=== PATIENT | male | born 1995 | race Two or more races ===

== ENCOUNTER 2019-12-26 17:51 | Emergency (ER) | payer SELFPAY ==
[~2019-12-26] VITALS: Ht 167.6 cm; Wt 57.7 kg
[2019-12-26 18:07] VITALS: BP 120/58
[2019-12-26] MEDS ORDERED: DOCO2CRE TP (18:23)
[2019-12-26] MEDS ORDERED: CEPH-264 PO (18:23)
--- NOTE | 2019-12-26 18:23 | PHYS DOC ---
Past Medical History Past Medical History: No Pertinent History (RADHA TAYLOR) Past Surgical History: No Surgical History (RADHA TAYLOR) Smoking Status: Never Smoker Alcohol Use: None (RADHA TAYLOR) Adult General Chief Complaint Chief Complaint: BLISTER/COLD SORE HPI HPI Patient is a 24 year old M with a cold sore on his lower lip that has now become inflamed and spread with yellow crust. He states he has never had cold sores or fever blisters in the past. PT denies any new sexual partners or contacts. He denies any sores on his genitals. He denies recent illness, fever or stress. (RADHA TAYLOR) Review of Systems Review of Systems Constitutional: Denies fever or chills Eyes: Denies change in visual acuity, redness, or eye pain HENT: Denies nasal congestion or sore throat. Reports lower lip pain Respiratory: Denies cough or shortness of breath Cardiovascular: Denies chest pain GI: Denies abdominal pain, nausea, vomiting, bloody stools or diarrhea Musculoskeletal: Denies back pain or joint pain Integument: Reports lower lip sore Neurologic: Denies headache, focal weakness or sensory changes All other systems were reviewed and found to be within normal limits, except as documented in this note. (RADHA TAYLOR) Allergies Allergies Allergies Coded Allergies Type Severity Reaction Last Updated Verified No Known Drug Allergies 12/26/19 No (OLIVIER BEYER MD) Physical Exam Physical Exam Constitutional: Well developed, well nourished, no acute distress, non-toxic tiesha earance. HENT: Normocephalic, atraumatic, bilateral external ears normal, oropharynx moist, no oral exudates, nose normal. Lower lip lesion that appears to be herpes labialis, however it is inflamed and extends towards middle lip with possible purulent drainage in center, no induration or fluctuance to suggest abscess at this time. Eyes: PERRLA, EOMI, conjunctiva normal, no discharge. Neck: Normal range of motion, no tenderness, supple, no stridor. Cardiovascular:Heart rate regular rhythm, no murmur Lungs & Thorax: Bilateral breath sounds clear to auscultation Abdomen: Bowel sounds normal, soft, no tenderness, no masses, no pulsatile masses. Skin: Warm, dry, no erythema, no rash. See above Back: No tenderness, no CVA tenderness. Extremities: No tenderness, no cyanosis, no clubbing, ROM intact, no edema. Neurologic: Alert and oriented X 3, normal motor function, normal sensory function, no focal deficits noted. Psychologic: Affect normal, judgement normal, mood normal. (RADHA TAYLOR) Current Patient Data Vital Signs Vital Signs Date Time Temp Pulse Resp B/P (MAP) Pulse Ox O2 Delivery O2 Flow Rate FiO2 12/26/19 18:07 98.5 59 18 120/58 (78) 98 Room Air 98.5 (OLIVIER BEYER MD) EKG EKG [] (RADHA TAYLOR) Radiology/Procedures Radiology/Procedures [] (RADHA TAYLOR) Course & Med Decision Making Course & Med Decision Making Discussed probable cold sore and then suspect he picked at it and now has possible secondary bacterial infection. Will cover with both Abreva cream and 3 days of Keflex. Pt to increase oral hygiene and f/u with PCP. Return if symptoms worsen at anytime. (RADHA TAYLOR) Course & Med Decision Making I was not involved in the care of this patient after 1800 on December 26, 2019. (OLIVIER BEYER MD) Dragon Disclaimer Dragon Disclaimer This electronic medical record was generated, in whole or in part, using a voice recognition dictation system. (RADHA TAYLOR) Departure Departure Impression: Primary Impression: Fever blister Additional Impression: Infection of lip Disposition: HOME, SELF-CARE Condition: STABLE Referrals: NO PCP (PCP) Patient Instructions: Cold Sore, [id number], Herpes Labialis Additional Instructions: Suspect that this is a cold sore that has become inflamed and possibly has a secondary bacterial infection. Will cover with a topical viral cream and oral antibiotic. Increase dental and oral hygeine. Scripts Cephalexin (KEFLEX) 500 Mg Capsule 1 CAP PO TID for 3 Days, #9 CAP 0 Refills Prov: RADHA TAYLOR 12/26/19 Docosanol (ABREVA) 2 Gm Cream..g. 2 GM TP Q4HRS for 5 Days, #30 EACH Prov: RADHA TAYLOR 12/26/19 Problem Qualifiers RADHA TAYLOR Dec 26, 2019 18:23 OLIVIER BEYER MD Dec 28, 2019 06:38
== END 2019-12-26 18:31 | disposition home or self-care (01) ==
LOC: ER 17:51
DX: B00.1 Herpesviral vesicular dermatitis (principal); K13.0 Diseases of lips; R51 Headache
CPT/HCPCS: 99283